=== PATIENT | female | born 1975 | race Caucasian/White ===

== ENCOUNTER 2024-12-06 11:22 | Outpatient (CLI) | payer SELFPAY | END 2024-12-06 11:23 | disposition home or self-care (01) | PROVIDERS: PCP Family Medicine; Visit Provider Family Medicine | DX: R10.9 Unspecified abdominal pain (principal); K52.9 Noninfective gastroenteritis and colitis, unspecified | CPT/HCPCS: 86003; 86008; 86364 ==